=== PATIENT | male | born 1960 | race American Indian/Alaskan Native ===

== ENCOUNTER 2016-05-19 09:17 | Outpatient (CLI) | payer BC ==
--- NOTE | 2016-05-19 12:13 | Ultrasound Report ---
ULTRASOUND RENAL BILATERAL: HISTORY: Bilateral renal cysts. FINDINGS: The right kidney measures 9.1 x 5.4 x 3.6 cm. A simple right renal cyst near mid pole measures 1.5 cm. The left kidney measures 9.6 x 6.2 x 6.1 cm. There is a 6.6 x 6.0 cm cyst near the inferior pole of the left kidney with a solitary thin septation. This cyst appears slightly increased in size since the previous exam when it measured approximately 5 cm in diameter. The remainder of the kidneys are unremarkable. No evidence for mass, calculus, hydronephrosis or perinephric fluid. Images through the bladder are unremarkable. IMPRESSION: Bilateral renal cysts, as described.
== END 2016-05-19 09:18 | disposition home or self-care (01) ==
LOC: US 09:17
PROVIDERS: ATTEND Family Medicine
DX: N28.1 Cyst of kidney, acquired (principal)
CPT/HCPCS: 76770

== ENCOUNTER 2016-11-26 08:05 | Outpatient (CLI) | payer BC ==
[2016-11-26 09:28] LABS: Blood Urea Nitrogen 15 mg/dL (9-20)
--- NOTE | 2016-11-26 10:59 | Cat Scan Report ---
CT scan of head without contrast: History: Weakness left sided upper and lower extremity. Findings: Ventricles are normal in size and midline in location. No evidence of acute ischemia, hemorrhage or mass. No extra-axial fluid collection. Normal brainstem and cerebellum. Impression: No acute intracranial abnormality.
== END 2016-11-26 08:06 | disposition home or self-care (01) ==
LOC: CT 08:05
PROVIDERS: ATTEND Family Medicine
DX: R53.1 Weakness (principal)
CPT/HCPCS: 36415; 70470; 82565; 84520; Q9967

== ENCOUNTER 2019-11-28 07:52 | Outpatient (CLI) | payer BC ==
--- NOTE | 2019-11-28 09:16 | Magnetic Resonance Report ---
MR cervical spine wo con INDICATION / CLINICAL INFORMATION: 59 years Male; N54.12Radiculopathy, cervical region. TECHNIQUE: Multisequence, multiplanar images of the cervical spine were obtained. COMPARISON: None available. FINDINGS: CRANIOCERVICAL JUNCTION:No significant abnormality. ALIGNMENT: There is no significant spondylolisthesis involving the cervical spine. VERTEBRAE:There are advanced degenerative disc changes at C6-7 with endplate findings and mild edema. There is slight edema posteriorly at C5-6 and on the left at C3-4. There is also edema within the le ft articular facets at C3-4. VISUALIZED SPINAL CORD: The motion degrades the image quality. However, the cervical spinal cord appe ars to demonstrate appropriate signal intensity. [id number] ANALYSIS: C2-3: No significant abnormality. C3-4: The posterior spondylosis at C3-4 is greater on the left with mild deformity of the ventral cor d. Additionally, there is effacement of the left lateral recess with marked left neural foraminal ester rowing. C4-5: There is a broad-based central disc bulge and annular tear which slightly deforms the ventral c ord. There is mild neural foraminal narrowing bilaterally. C5-6: The posterior spondylosis mildly deforms the ventral cord with effacement of the lateral recess es. Additionally, there is marked left and moderate to marked right neural foraminal narrowing. C6-7: There is a central disc protrusion which mildly deforms the ventral cord. Additionally, there i s moderate to marked neural foraminal narrowing bilaterally. C7-T1: There is a slight disc bulge without significant spinal stenosis. There is mild facet joint hy pertrophy and neural foraminal narrowing bilaterally. PARASPINAL SOFT TISSUES: No significant abnormality. ADDITIONAL FINDINGS: No epidural collections are identified. IMPRESSION: 1. There are multilevel degenerative changes involving cervical spine with spondylosis and facet join t arthropathy as detailed above. Signer Name: Juni Olson MD Signed: 11/28/2019 9:12 AM Workstation Name: [id number]
== END 2019-11-28 07:53 | disposition home or self-care (01) ==
LOC: MRI 07:52
PROVIDERS: ATTEND Family Medicine
DX: M50.221 Other cervical disc displacement at C4-C5 level (principal); M47.812 Spondylosis without myelopathy or radiculopathy, cervical region; M48.02 Spinal stenosis, cervical region
CPT/HCPCS: 72141

== ENCOUNTER 2020-05-28 07:52 | Outpatient (CLI) | payer BC ==
[2020-05-14 08:14] LABS: Blood Urea Nitrogen 17 mg/dL (9-20)
== END 2020-05-28 07:53 | disposition home or self-care (01) ==
LOC: CT 07:52
PROVIDERS: ATTEND Psychiatry & Neurology Neurology
DX: M50.323 Other cervical disc degeneration at C6-C7 level (principal)
CPT/HCPCS: 36415; 82565; 84520

== ENCOUNTER 2020-06-04 08:03 | Outpatient (CLI) | payer BC ==
[2020-06-04] MEDS ORDERED: LIDOCAINE (2%) 20 MG/1 ML VIAL 20 ML MDV INFILTRATI ONE (08:41)
[2020-06-04 10:24] LABS: INR 0.98 (0.87-1.13); Partial Thromboplastin Time 30.3 Sec. (24.2-36.6)
--- NOTE | 2020-06-04 12:23 | Procedure Note ---
Date of procedure: 06/04/20 Pre-op diagnosis: Neck pain Post-op diagnosis: same Procedure: Fluoroscopically guided cervical myelogram. Findings: Please see radiology report. Anesthesia: local Surgeon: MARCELLE PATRICK Estimated blood loss: minimal Pathology: none Condition: stable Disposition: same day
--- NOTE | 2020-06-04 12:51 | Fluoroscopy Report ---
Cervical myelogram INDICATION : Neck pain, here for mammogram PROCEDURE: The risks (including but not limited to bleeding, infection, and spinal headache) and simeon efits were explained to the patient and informed consent was obtained. A time out procedure was perf ormed. The procedure site was prepped and draped in the usual sterile fashion and lidocaine was used for local anesthesia. Under fluoroscopic guidance, a 22-gauge spinal needle was advanced into the L3/4 interlaminar space. After CSF was returned from the needle, approximately 10 mL of Omnipaque 300 was slowly injected into the thecal sac. The patient was then tilted with head down to allow for contrast passage into the ce rvical spine region. The patient tolerated the procedure well with no complications. IMPRESSION: 1. Successful cervical myelogram as outlined above. Fluoroscopic time: 5.4 minutes Number of fluoroscopic images: 5 Signer Name: Matt Alarcon MD Signed: 06/04/2020 12:47 PM Workstation Name: [id number]
[2020-06-04 12:58] VITALS: BP 152/93
--- NOTE | 2020-06-04 13:19 | Cat Scan Report ---
CT cervical spine myelogram with intrathecal contrast INDICATION: Generalized bilateral upper exam knee pain for several weeks. TECHNIQUE: Axial imaging performed through the cervical spine with the use of intrathecal contrast. Sagittal and coronal reconstructed images were also reviewed. All CT scans at this location are per formed using CT dose reduction for ALARA by means of automated exposure control. COMPARISON: MRI cervical spine from 11/28/2019 FINDINGS: Alignment: Spinal alignment is normal. Soft tissues: No acute or significant incidental soft tissue abnormality. C2/3: Mild discogenic DJD and facet arthropathy with no appreciable disc bulge, canal stenosis, or fo raminal stenosis. C3/4: Mild discogenic DJD with moderate left greater than right facet arthropathy and asymmetric left -sided uncovertebral hypertrophy. There is mild flattening of the spinal cord left of midline in this region and there is also moderate to severe left-sided foraminal stenosis. C4/5: Mild discogenic DJD and facet arthropathy with no appreciable canal or foraminal stenosis. C5/6: Moderate discogenic DJD and facet arthropathy with bilateral uncovertebral hypertrophy. And sma ll posterior disc/osteophyte complex. There is moderate spinal canal stenosis in this region and ther e is also moderate bilateral foraminal stenosis. C6/7: Moderately advanced discogenic DJD with regular left facet arthropathy and bilateral uncoverteb ral hypertrophy. There is a small posterior disc/osteophyte complex. These findings result in moderat e to severe spinal canal stenosis and also mild bilateral foraminal stenosis. C7/T1: Mild discogenic DJD and facet arthropathy without disc bulge, canal stenosis, foraminal stenos is. IMPRESSION: Multilevel spondylosis as detailed level by level above most notable for moderate spinal canal stenosis at C5-7 and also levels of foraminal stenosis. Signer Name: Matt Alarcon MD Signed: 06/04/2020 1:15 PM Workstation Name: [id number]
== END 2020-06-04 13:30 | disposition home or self-care (01) ==
LOC: CATHLABREC 08:03
DX: M54.2 Cervicalgia (principal); M48.02 Spinal stenosis, cervical region; M12.88 Other specific arthropathies, not elsewhere classified, other specified site; M47.892 Other spondylosis, cervical region; I25.10 Atherosclerotic heart disease of native coronary artery without angina pectoris; I10 Essential (primary) hypertension; Z98.890 Other specified postprocedural states; Z79.899 Other long term (current) drug therapy; Z87.891 Personal history of nicotine dependence
CPT/HCPCS: 36415; 62302; 72125; 85049; 85610; 85730; Q9967

== ENCOUNTER 2020-07-14 08:06 | Outpatient (CLI) | payer BC ==
--- NOTE | 2020-07-14 10:26 | Ultrasound Report ---
RENAL ULTRASOUND HISTORY: HISTORY OF RENAL CYST COMPARISON: Renal ultrasound 05/19/2016 TECHNIQUE: Multiple real-time ultrasonographic grayscale images were obtained of the kidneys and urin diogenes bladder. FINDINGS: Right kidney: 1.9 cm simple cyst in the right kidney. Otherwise no significant abnormality. Kidney m easures 10.1 cm. Left kidney: Redemonstration of a cyst with thin internal septation in the left kidney, currently jahaira suring up to 7.6 x 6.3 x 5.6 cm, previously 6.6 x 6.0 x 5.7 cm. No nodularity or solid component iden tified. Kidney measures 16.3 cm. Urinary bladder: No significant abnormality. Additional findings: None. IMPRESSION: 1. A 7.6 cm cyst with thin internal septation in the left kidney is slightly increased in size compar ed with prior examination but demonstrates benign features. No suspicious nodularity or solid compone nt identified. Signer Name: Sarah Wasserman MD Signed: 07/14/2020 10:22 AM Workstation Name: [id number]
== END 2020-07-14 08:07 | disposition home or self-care (01) ==
LOC: US 08:06
PROVIDERS: ATTEND Family Medicine
DX: N28.1 Cyst of kidney, acquired (principal); Z87.448 Personal history of other diseases of urinary system
CPT/HCPCS: 76770

== ENCOUNTER 2021-01-30 13:25 | Observation (INO) | payer BC ==
[2021-01-30] MEDS ORDERED: ASPIRIN 325 MG TAB PO ONE (13:52)
[2021-01-30 14:20] LABS: Basophils % (Auto) 0.8 % (0.0-1.8); Eosinophils # (Auto) 0.1 K/mm3 (0.0-0.4); Eosinophils % (Auto) 3.6 % (0.0-4.3); Hematocrit 40.1 % (35.5-45.6); Hemoglobin 13.6 gm/dl (11.8-15.2); Lymphocytes # (Auto) 1.6 K/mm3 (1.2-5.4); Lymphocytes % (Auto) 39.6 % (13.4-35.0); Mean Corpuscular HGB Conc 34 % (32-34); Mean Corpuscular Volume 91 fl (84-94); Monocytes # (Auto) 0.4 K/mm3 (0.0-0.8); Monocytes % (Auto) 9.9 % (0.0-7.3); Platelet Count 190 K/mm3 (140-440); Red Cell Distribution Width 13.9 % (13.2-15.2)
--- NOTE | 2021-01-30 14:28 | XRay Report ---
XR chest routine 2V INDICATION / CLINICAL INFORMATION: chest pain COMPARISON: 07/05/18 FINDINGS: SUPPORT DEVICES: None. HEART / MEDIASTINUM: No significant abnormality. LUNGS / PLEURA: Lungs are clear. Costophrenic sulci are sharp. No pneumothorax. ADDITIONAL FINDINGS: No significant additional findings. IMPRESSION: 1. No acute findings. Signer Name: Dajuan Arroyo MD Signed: 01/30/2021 2:24 PM Workstation Name: [id number]
--- NOTE | 2021-01-30 14:32 | Event Note ---
ED Screening Note Date of service: 01/30/21 Time: 14:29 ED Screening Note: The patient was evaluated in the emergency department for symptoms described in the history of present illness. He/she was evaluated in the context of the global COVID-19 pandemic, which necessitated consideration that the patient might be at risk for infection with the virus that causes COVID-19. Institutional protocols and algorithms that pertain to the evaluation of patients at risk for COVID-19 are in a state of rapid change based on information released by regulatory bodies including the CDC and federal and state organizations. These policies and algorithms were followed during the patient's care in the emergency department. Please note that these policies, procedures and recommendations changed on a rapid basis. 60-year-old male presents to the emergency room complaining of chest pain that started last night. Patient states onset was when he was at the bathroom. Patient reports he was not having a bowel movement at that time. Patient states the pain had radiated to his left arm. He reports he was having some lightheadedness at the time. Patient denies any nausea, vomiting no diarrhea no shortness of breath and no diaphoresis. Patient states the pain was worse last night. Patient reports pain is intermittent and is a 2-3/10. Patient reports he has more pain in his shoulder and just has light chest pain. Patient reports a past medical history of hypertension and cervical radiculopathy on the left side. Patient states he takes Benicar 100 mg and hydrochlorothiazide 12.5 mg he takes an aspirin and amlodipine 10. Patient states he was prescribed Robaxin but does not take it often. He states he had a stress test 8 to 10 years ago at [facility]. Patient has a primary care provider Dr. Velazco. This initial assessment/diagnostic orders/clinical plan/treatment(s) is/are subject to change based on patients health status, clinical progression and re- assessment by fellow clinical providers in the ED. Further treatment and workup at subsequent clinical providers discretion. Patient/guardian urged not to elope from the ED as their condition may be serious if not clinically assessed and managed. Initial orders include: Cardiac work-up placed by RN in triage
[2021-01-30 14:37] LABS: Alanine Aminotransferase 18 units/L (7-56); Albumin 4.3 g/dL (3.9-5); BUN/Creatinine Ratio 15; Blood Urea Nitrogen 17 mg/dL (9-20); Calcium 8.8 mg/dL (8.4-10.2); Hemolysis Index 1
--- NOTE | 2021-01-30 14:41 | Emergency Department Report ---
ED Chest Pain HPI - General Chief Complaint: Chest Pain Stated Complaint: CHEST PAINS Time Seen by Provider: 01/30/21 14:12 Source: patient Mode of arrival: Ambulatory Limitations: No Limitations - History of Present Illness Initial Comments: 60-year-old male presents to the emergency department, sent in from an urgent care, with complaint of chest pain that has been going on since last night. 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 He complains of generalized chest pressure that is currently about 3 out of 10 in intensity. Overnight patient had 4-5 different episodes of "crushing" chest pains with radiation to the bilateral shoulders and arms. He denies any shortness of breath, nausea, vomiting or diaphoresis. Patient took some aspirin last night without any relief. He has a past medical history of hypertension. He denies any tobacco or illicit drug use. His primary care physician is Dr. Hernandez. He does not have a frame stripper and crusher. He last had a stress test about 8 to 10 years ago. No recent travel or sick contacts at home. No known alleviating factors, but the patient says that exertion makes his symptoms worse. Severity scale (0 -10): 3 - Related Data Home Medications Medication Instructions Recorded Confirmed Last Taken Olmesartan/Hctz 40/12.5MG(Nf) 1 tab PO DAILY 06/04/20 06/04/20 06/03/20 [Benicar Hct 40-12.5 mg (Nf)] 1 methOCARBAMOL [Robaxin TAB] 500 mg PO DAILY PRN 06/04/20 06/04/20 Unknown Previous Rx's Medication Instructions Recorded Last Taken Type Cyclobenzaprine HCl 7.5 mg PO BID PRN #14 tab 04/15/16 05/27/20 Rx [Cyclobenzaprine 7.5 MG TAB] 7.5mg Allergies Allergy/AdvReac Type Severity Reaction Status Date / Time No Known Allergies Allergy Verified 01/30/21 13:51 Heart Score - HEART Score History: Moderately suspicious EKG: Normal Age: 45-65 Risk factors: 1-2 risk factors Troponin: < normal limit HEART Score: 3 - EKG Read Time Time EKG Completed: 13:46 EKG Read Time: 13:59 - Critical Actions Critical Actions: 0-3 pts:0.9-1.7%risk of adverse cardiac event.Candidate for discharge ED Review of Systems ROS: Stated complaint: CHEST PAINS Other details as noted in HPI Comment: All other systems reviewed and negative Constitutional: denies: chills, fever Eyes: denies: eye pain, vision change ENT: denies: ear pain, throat pain Respiratory: shortness of breath. denies: cough Cardiovascular: chest pain. denies: palpitations Gastrointestinal: denies: abdominal pain, vomiting Genitourinary: denies: dysuria, discharge Musculoskeletal: denies: back pain, arthralgia Skin: denies: rash, lesions Neurological: denies: headache, weakness ED Past Medical Hx - Past Medical History Hx Hypertension: Yes Hx Arthritis: Yes - Social History Smoking Status: Former Smoker - Medications Home Medications: Home Medications Medication Instructions Recorded Confirmed Last Taken Type Cyclobenzaprine HCl 7.5 mg PO BID PRN #14 tab 04/15/16 06/04/20 05/27/20 Rx [Cyclobenzaprine 7.5 MG TAB] 7.5mg Olmesartan/Hctz 40/12.5MG(Nf) 1 tab PO DAILY 06/04/20 06/04/20 06/03/20 History [Benicar Hct 40-12.5 mg (Nf)] 1 methOCARBAMOL [Robaxin TAB] 500 mg PO DAILY PRN 06/04/20 06/04/20 Unknown History ED Physical Exam - General Limitations: No Limitations - Other Other exam information: GENERAL: The patient is well-developed well-nourished. HENT: Normocephalic. Atraumatic. Patient has moist mucous membranes. EYES: Extraocular motions are intact. NECK: Supple. Trachea is midline. CHEST/LUNGS: Clear to auscultation. There is no respiratory distress noted. HEART/CARDIOVASCULAR: Regular. There is no tachycardia. There is no murmur. ABDOMEN: Abdomen is soft, nontender. Patient has normal bowel sounds. There is no abdominal distention. SKIN: Skin is warm and dry. NEURO: The patient is awake, alert, and oriented. The patient is cooperative. The patient has no focal neurologic deficits. Normal speech. MUSCULOSKELETAL: There is no tenderness or deformity. There is no limitation range of motion. ED Course Vital Signs 01/30/21 01/30/21 13:43 15:25 Temperature 97.8 F 98.2 F Pulse Rate 58 L 55 L Respiratory 16 14 Rate Blood Pressure 127/77 149/86 [Left] O2 Sat by Pulse 98 100 Oximetry RODRIGUEZ score - Rodriguez Score Age > 65: (0) No Aspirin use within the Past 7 Days: (1) Yes 3 or more CAD Risk Factors: (0) No 2 or more Angina events in past 24 hrs: (1) Yes Known CAD with more than 50% Stenosis: (0) No Elevated Cardiac Markers: (0) No ST Deviation Greater than 0.5mm: (0) No RODRIGUEZ Score: 2 ED Medical Decision Making - Lab Data Result diagrams: 01/30/21 13:55 01/30/21 13:55 Lab Results 01/30/21 01/30/21 Range/Units 13:55 13:55 WBC 4.1 L (4.5-11.0) K/mm3 RBC 4.40 (3.65-5.03) M/mm3 Hgb 13.6 (11.8-15.2) gm/dl Hct 40.1 (35.5-45.6) % MCV 91 (84-94) fl MCH 31 (28-32) pg MCHC 34 (32-34) % RDW 13.9 (13.2-15.2) % Plt Count 190 (140-440) K/mm3 Lymph % (Auto) 39.6 H (13.4-35.0) % Twiggs % (Auto) 9.9 H (0.0-7.3) % Eos % (Auto) 3.6 (0.0-4.3) % Baso % (Auto) 0.8 (0.0-1.8) % Lymph # (Auto) 1.6 (1.2-5.4) K/mm3 Twiggs # (Auto) 0.4 (0.0-0.8) K/mm3 Eos # (Auto) 0.1 (0.0-0.4) K/mm3 Baso # (Auto) 0.0 (0.0-0.1) K/mm3 Seg Neutrophils % 46.1 (40.0-70.0) % Seg Neutrophils # 1.9 (1.8-7.7) K/mm3 Sodium 141 (137-145) mmol/L Potassium 3.8 (3.6-5.0) mmol/L Chloride 104.2 (98-107) mmol/L Carbon Dioxide 23 (22-30) mmol/L Anion Gap 18 mmol/L BUN 17 (9-20) mg/dL Creatinine 1.1 (0.8-1.3) mg/dL Estimated GFR > 60 ml/min BUN/Creatinine Ratio 15 % Glucose 105 H (75-100) mg/dL Calcium 8.8 (8.4-10.2) mg/dL Total Bilirubin 0.70 (0.1-1.2) mg/dL AST 18 (5-40) units/L ALT 18 (7-56) units/L Alkaline Phosphatase 66 (35-129) units/L Troponin T < 0.010 (0.00-0.029) ng/mL Total Protein 7.5 (6.3-8.2) g/dL Albumin 4.3 (3.9-5) g/dL Albumin/Globulin Ratio 1.3 % - EKG Data -: EKG Interpreted by Me EKG shows normal: sinus rhythm, axis, intervals, QRS complexes, ST-T waves Rate: bradycardia (58 bpm) - EKG Data When compared to previous EKG there are: previous EKG unavailable Interpretation: normal EKG - Radiology Data Radiology results: image reviewed interpreted by me: Chest x-ray does not show any acute process. There are no pleural effusions, obvious pneumonia and there is no pneumothorax. - Medical Decision Making This patient presents to the emergency department with 2 different types of chest pain since last night. He has a consistent generalized chest pressure, and last night the patient had 4-5 episodes of "crushing" chest pain with radiation towards the shoulders and arms. The patient says that his symptoms worsen with exertion. EKG does not have any morphology consistent with ST elevation myocardial infarction. Chest x-ray does not show any pneumonia, pleural effusions, pneumothorax, widened mediastinum, or any other acute process. Patient's labs have been mostly unremarkable thus far including CBC, metabolic panel and a first negative troponin. Patient has a moderate heart score. It has been at least 8 years since the patient has had a stress test. He continues to have chest discomfort. For all these reasons the patient will be admitted to the hospital for further evaluation and has been accepted for admission by the hospitalist, Dr. Green. Critical Care Time: No Critical care attestation.: If time is entered above; I have spent that time in minutes in the direct care of this critically ill patient, excluding procedure time. ED Disposition Clinical Impression: Acute chest pain, Angina at rest Disposition: ADMITTED INPATIENT Is pt being admited?: Yes Condition: Fair Instructions: Chest Pain (ED) Time of Disposition: 14:54
[2021-01-30] MEDS ORDERED: HYDROcodone/ACETAMINOPHEN 5-325 MG TAB PO ONE (15:24)
[2021-01-30] MEDS ORDERED: CYCLOBENZAPRINE HCL 7.5 MG PO PRN (22:45)
--- NOTE | 2021-01-30 22:45 | History and Physical Report ---
History of Present Illness Date of examination: 01/30/21 Date of admission: 01/30/21 14:54 Chief complaint: Chest pain since a.m. 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 Patient was went to urgent care and was sent to the [facility]. Patient does not have a human resources receptionist. Patient had a stress test about 10 years ago. Patient has a history of hypertension and is compliant. Chest pain has been going on since last night and intermittent in nature. Chest pain is about 8 on a scale of 1- 10. No diaphoresis no shortness of breath. - HEART Score History: Moderately suspicious EKG: Normal Age: 45-65 Risk factors: 1-2 risk factors Troponin: < normal limit HEART Score: 3 - Past Medical History --Hypertension: Yes --Arthritis: Yes -Surgical history --none - family history --Htn - Social History Smoking Status: Former Smoker - Medications Home Medications: Home Medications Medication Instructions Recorded Confirmed Last Taken Type Cyclobenzaprine HCl 7.5 mg PO BID PRN #14 tab 04/15/16 06/04/20 05/27/20 Rx [Cyclobenzaprine 7.5 MG TAB] 7.5mg Olmesartan/Hctz 40/12.5MG(Nf) 1 tab PO DAILY 06/04/20 06/04/20 06/03/20 History [Benicar Hct 40-12.5 mg (Nf)] 1 methOCARBAMOL [Robaxin TAB] 500 mg PO DAILY PRN 06/04/20 06/04/20 Unknown History Review of Systems ROS: Stated complaint: CHEST PAINS Other details as noted in HPI Comment: All other systems reviewed and negative Constitutional: denies: chills, fever Eyes: denies: eye pain, vision change ENT: denies: ear pain, throat pain Respiratory: shortness of breath. denies: cough Cardiovascular: chest pain. denies: palpitations Gastrointestinal: denies: abdominal pain, vomiting Genitourinary: denies: dysuria, discharge Musculoskeletal: denies: back pain, arthralgia Skin: denies: rash, lesions Neurological: denies: headache, weakness Medications and Allergies Allergies Allergy/AdvReac Type Severity Reaction Status Date / Time No Known Allergies Allergy Verified 01/30/21 13:51 Home Medications Medication Instructions Recorded Confirmed Last Taken Type Cyclobenzaprine HCl 7.5 mg PO BID PRN #14 tab 04/15/16 06/04/20 05/27/20 Rx [Cyclobenzaprine 7.5 MG TAB] 7.5mg Olmesartan/Hctz 40/12.5MG(Nf) 1 tab PO DAILY 06/04/20 06/04/20 06/03/20 History [Benicar Hct 40-12.5 mg (Nf)] 1 methOCARBAMOL [Robaxin TAB] 500 mg PO DAILY PRN 06/04/20 06/04/20 Unknown History Exam - Constitutional Vitals: Temp Pulse Resp BP Pulse Ox 98.2 F 56 L 12 131/84 99 01/30/21 15:25 01/30/21 22:29 01/30/21 22:29 01/30/21 22:29 01/30/21 22:29 HEART Score - HEART Score EKG: Normal Age: 45-65 Risk factors: 1-2 risk factors Troponin: Troponin T < 0.010 ng/mL (0.00-0.029) 01/30/21 18:43 Troponin: < normal limit - Critical Actions Critical Actions: 0-3 pts:0.9-1.7%risk of adverse cardiac event.Candidate for discharge Results - Labs CBC & Chem 7: 01/31/21 04:36 01/31/21 04:36 Labs: Laboratory Last Values WBC 4.1 K/mm3 (4.5-11.0) L 01/30/21 13:55 RBC 4.40 M/mm3 (3.65-5.03) 01/30/21 13:55 Hgb 13.6 gm/dl (11.8-15.2) 01/30/21 13:55 Hct 40.1 % (35.5-45.6) 01/30/21 13:55 MCV 91 fl (84-94) 01/30/21 13:55 MCH 31 pg (28-32) 01/30/21 13:55 MCHC 34 % (32-34) 01/30/21 13:55 RDW 13.9 % (13.2-15.2) 01/30/21 13:55 Plt Count 190 K/mm3 (140-440) 01/30/21 13:55 Lymph % (Auto) 39.6 % (13.4-35.0) H 01/30/21 13:55 [place] % (Auto) 9.9 % (0.0-7.3) H 01/30/21 13:55 Eos % (Auto) 3.6 % (0.0-4.3) 01/30/21 13:55 Baso % (Auto) 0.8 % (0.0-1.8) 01/30/21 13:55 Lymph # (Auto) 1.6 K/mm3 (1.2-5.4) 01/30/21 13:55 [place] # (Auto) 0.4 K/mm3 (0.0-0.8) 01/30/21 13:55 Eos # (Auto) 0.1 K/mm3 (0.0-0.4) 01/30/21 13:55 Baso # (Auto) 0.0 K/mm3 (0.0-0.1) 01/30/21 13:55 Seg Neutrophils % 46.1 % (40.0-70.0) 01/30/21 13:55 Seg Neutrophils # 1.9 K/mm3 (1.8-7.7) 01/30/21 13:55 Sodium 141 mmol/L (137-145) 01/30/21 13:55 Potassium 3.8 mmol/L (3.6-5.0) 01/30/21 13:55 Chloride 104.2 mmol/L (98-107) 01/30/21 13:55 Carbon Dioxide 23 mmol/L (22-30) 01/30/21 13:55 Anion Gap 18 mmol/L 01/30/21 13:55 BUN 17 mg/dL (9-20) 01/30/21 13:55 Creatinine 1.1 mg/dL (0.8-1.3) 01/30/21 13:55 Estimated GFR > 60 ml/min 01/30/21 13:55 BUN/Creatinine Ratio 15 % 01/30/21 13:55 Glucose 105 mg/dL (75-100) H 01/30/21 13:55 Calcium 8.8 mg/dL (8.4-10.2) 01/30/21 13:55 Total Bilirubin 0.70 mg/dL (0.1-1.2) 01/30/21 13:55 AST 18 units/L (5-40) 01/30/21 13:55 ALT 18 units/L (7-56) 01/30/21 13:55 Alkaline Phosphatase 66 units/L (35-129) 01/30/21 13:55 Troponin T < 0.010 ng/mL (0.00-0.029) 01/30/21 18:43 Total Protein 7.5 g/dL (6.3-8.2) 01/30/21 13:55 Albumin 4.3 g/dL (3.9-5) 01/30/21 13:55 Albumin/Globulin Ratio 1.3 % 01/30/21 13:55 Short CBC 01/30/21 01/31/21 Range/Units 13:55 04:36 WBC 4.1 L 4.3 L (4.5-11.0) K/mm3 Hgb 13.6 13.1 (11.8-15.2) gm/dl Hct 40.1 38.7 (35.5-45.6) % Plt Count 190 178 (140-440) K/mm3 BMP 01/30/21 01/31/21 13:55 04:36 Sodium 141 138 Potassium 3.8 3.9 Chloride 104.2 103.1 Carbon Dioxide 23 26 BUN 17 17 Creatinine 1.1 1.1 Glucose 105 H 96 Calcium 8.8 8.6 Cardiac Enzymes 01/30/21 01/30/21 01/31/21 Range/Units 13:55 18:43 00:08 Total Creatine Kinase 179 H (55-170) units/L CK-MB (CK-2) 1.9 (0.0-4.0) ng/mL Troponin T < 0.010 < 0.010 < 0.010 (0.00-0.029) ng/mL 01/31/21 Range/Units 04:36 Total Creatine Kinase 152 (55-170) units/L CK-MB (CK-2) 1.7 (0.0-4.0) ng/mL Troponin T < 0.010 (0.00-0.029) ng/mL Liver Function 01/30/21 01/31/21 Range/Units 13:55 04:36 Total Bilirubin 0.70 0.50 (0.1-1.2) mg/dL AST 18 17 (5-40) units/L ALT 18 18 (7-56) units/L Alkaline Phosphatase 66 65 (35-129) units/L Albumin 4.3 4.0 (3.9-5) g/dL - Imaging and Cardiology EKG: report reviewed (Normal sinus rhythm no acute ST-T wave changes) Chest x-ray: report reviewed (No acute findings) Assessment and Plan Advance Directives: Yes (Full code) VTE prophylaxis?: Chemical Plan of care discussed with patient/family: Yes - Patient Problems (1) Acute coronary syndrome Current Visit: Yes Status: Acute Plan to address problem: Patient has acute coronary syndrome Serial troponins Stress test is not available on the weekend If the serial troponins and CK-MB is negative--we will defer to cardiology regarding outpatient stress test and patient to be discharged on 01/31/2021 (2) Hypertension Current Visit: Yes Status: Chronic Qualifiers: Hypertension type: primary hypertension Qualified Code(s): I10 - Essential (primary) hypertension Plan to address problem: Continue antihypertensives in the form of Benicar substitute for Benicar Adjust medications as necessary (3) DVT prophylaxis Current Visit: Yes Status: Acute Plan to address problem: On heparin and GI prophylaxis
[2021-01-30] MEDS ORDERED: METOCLOPRAMIDE 10 MG/2 ML INJ IV PRN (22:48)
[2021-01-30] MEDS ORDERED: ACETAMINOPHEN 325 MG TAB PO PRN (22:48)
[2021-01-30] MEDS ORDERED: HYDROmorphone 1 MG/1 ML INJ IV PRN (22:48)
[2021-01-30] MEDS ORDERED: ONDANSETRON 4 MG/2 ML INJ IV PRN (22:48)
[2021-01-30] MEDS ORDERED: oxyCODONE /ACETAMINOPHEN 5-325MG TAB PO PRN (22:48)
[2021-01-30] MEDS ORDERED: CYCLOBENZAPRINE 10 MG TAB PO PRN (22:49)
[2021-01-31 01:09] LABS: Creatine Kinase MB 1.9 ng/mL (0.0-4.0)
[2021-01-31 05:02] LABS: Basophils % (Auto) 1.1 % (0.0-1.8); Eosinophils # (Auto) 0.1 K/mm3 (0.0-0.4); Eosinophils % (Auto) 3.4 % (0.0-4.3); Hematocrit 38.7 % (35.5-45.6); Hemoglobin 13.1 gm/dl (11.8-15.2); Lymphocytes % (Auto) 46.7 % (13.4-35.0); Mean Corpuscular HGB Conc 34 % (32-34); Mean Corpuscular Volume 91 fl (84-94); Monocytes # (Auto) 0.5 K/mm3 (0.0-0.8); Monocytes % (Auto) 10.7 % (0.0-7.3); Platelet Count 178 K/mm3 (140-440); Red Blood Count 4.25 M/mm3 (3.65-5.03); Red Cell Distribution Width 14.1 % (13.2-15.2)
[2021-01-31 05:42] LABS: Creatine Kinase MB 1.7 ng/mL (0.0-4.0)
[2021-01-31 05:44] LABS: Alanine Aminotransferase 18 units/L (7-56); BUN/Creatinine Ratio 15; Blood Urea Nitrogen 17 mg/dL (9-20); Calcium 8.6 mg/dL (8.4-10.2); Hemolysis Index 6
--- NOTE | 2021-01-31 07:20 | Event Note ---
Date: 01/31/21 Called by the nurse this morning at 7 AM that the patient has some EKG changes. EKG looks like ST changes. Patient denied any chest pain no shortness of breath. Nurse check the EKG with ER physician recommend to repeat the EKG. Case signed out to the morning doctor
--- NOTE | 2021-01-31 08:16 | Event Note ---
Date: 01/31/[address] Akbar and patient's nurse called and reported that patient has some ST-T changes on the EKG that was done this morning. 60-year-old male patient admitted with chest pain, yesterday afternoon, serial cardiac enzymes, troponin x4 negative, Initial EKG nonspecific ST-T changes signed by assistant women's basketball coach Dr Marks EKG done this morning has the same nonspecific ST-T changes like the previous EKG, no new changes Evaluated the patient at the bedside, patient is comfortable, no new complaints Denies chest pain or shortness of breath Hemodynamically stable, heart exam S1-S2 regular no murmur. Cardiology is already consulted. Pending evaluation Continue current management, discussed with patient's nurse and charge nurse I also discussed with attending physician Dr. Young.
[2021-01-31] MEDS ORDERED: OLMESARTAN PO SCH (10:00)
[2021-01-31] MEDS ORDERED: HCTZ PO SCH (10:00)
[2021-01-31] MEDS ORDERED: ENOXAPARIN 40 MG/0.4 ML INJ SUB-Q SCH (10:00)
[2021-01-31] MEDS ORDERED: LOSARTAN 50 MG TAB PO SCH (10:00)
[2021-01-31] MEDS ORDERED: FAMOTIDINE 20 MG TAB PO SCH (10:00)
[2021-01-31] MEDS ORDERED: hydroCHLOROthiazide 12.5 MG CAP PO SCH (10:00)
--- NOTE | 2021-01-31 11:11 | Progress Note ---
Assessment and Plan Assessment and plan: (1) Acute coronary syndrome Current Visit: Yes Status: Acute Plan to address problem: Patient has acute coronary syndrome Serial troponins Stress test is not available on the weekend If the serial troponins and CK-MB is negative--we will defer to cardiology regarding outpatient stress test and patient to be discharged on 01/31/2021 (2) Hypertension Current Visit: Yes Status: Chronic Qualifiers: Hypertension type: primary hypertension Qualified Code(s): I10 - Essential (primary) hypertension Plan to address problem: Continue antihypertensives in the form of Benicar substitute for Benicar Adjust medications as necessary (3) DVT prophylaxis Current Visit: Yes Status: Acute Plan to address problem: On heparin and GI prophylaxis 01/31 -Patient has abnormal EKG, ST abnormality and EKG was interpreted yesterday by patient service rep, the EKG that was done this morning showed no change from yesterday. Patient does have any chest pain. Hemodynamically stable. Cardiology consulted and pending evaluation. -Blood pressure was normal this morning -Serial troponins were negative, stress test ordered. History Interval history: Patient was seen and evaluated this morning Patient does not have any chest pain during my evaluation Patient had chest pain yesterday He said he has some occasional chest pressure No shortness of breath, or diaphoresis Hospitalist Physical - Physical exam Narrative exam: Not in cardiopulmonary distress. The patient appeared well nourished and normally developed. Vital signs as documented. Head exam is unremarkable. No scleral icterus . Neck is without jugular venous distension, thyromegaly, or carotid bruits. Lungs are clear to auscultation. Cardiac exam reveals regular rate and Rhythm. Abdominal exam reveals normal bowel sounds, nontender, no organomegaly. Extremities are nonedematous and both femoral and pedal pulses are normal. TURNER OFF: Alert and oriented 3. No focal weakness. - Constitutional Vitals: Temp Pulse Resp BP Pulse Ox 98.0 F 55 L 20 130/79 100 01/31/21 05:51 01/31/21 08:16 01/31/21 07:43 01/31/21 07:43 01/31/21 08:16 HEART Score - HEART Score EKG: Normal Age: 45-65 Risk factors: 1-2 risk factors Troponin: Troponin T < 0.010 ng/mL (0.00-0.029) 01/31/21 04:36 Troponin: < normal limit - Critical Actions Critical Actions: 0-3 pts:0.9-1.7%risk of adverse cardiac event.Candidate for discharge Results - Labs CBC & Chem 7: 01/31/21 04:36 01/31/21 04:36 Labs: Laboratory Last Values WBC 4.3 K/mm3 (4.5-11.0) L 01/31/21 04:36 RBC 4.25 M/mm3 (3.65-5.03) 01/31/21 04:36 Hgb 13.1 gm/dl (11.8-15.2) 01/31/21 04:36 Hct 38.7 % (35.5-45.6) 01/31/21 04:36 MCV 91 fl (84-94) 01/31/21 04:36 MCH 31 pg (28-32) 01/31/21 04:36 MCHC 34 % (32-34) 01/31/21 04:36 RDW 14.1 % (13.2-15.2) 01/31/21 04:36 Plt Count 178 K/mm3 (140-440) 01/31/21 04:36 Lymph % (Auto) 46.7 % (13.4-35.0) H 01/31/21 04:36 [place] % (Auto) 10.7 % (0.0-7.3) H 01/31/21 04:36 Eos % (Auto) 3.4 % (0.0-4.3) 01/31/21 04:36 Baso % (Auto) 1.1 % (0.0-1.8) 01/31/21 04:36 Lymph # (Auto) 2.0 K/mm3 (1.2-5.4) 01/31/21 04:36 [place] # (Auto) 0.5 K/mm3 (0.0-0.8) 01/31/21 04:36 Eos # (Auto) 0.1 K/mm3 (0.0-0.4) 01/31/21 04:36 Baso # (Auto) 0.0 K/mm3 (0.0-0.1) 01/31/21 04:36 Seg Neutrophils % 38.1 % (40.0-70.0) L 01/31/21 04:36 Seg Neutrophils # 1.6 K/mm3 (1.8-7.7) L 01/31/21 04:36 Sodium 138 mmol/L (137-145) 01/31/21 04:36 Potassium 3.9 mmol/L (3.6-5.0) 01/31/21 04:36 Chloride 103.1 mmol/L (98-107) 01/31/21 04:36 Carbon Dioxide 26 mmol/L (22-30) 01/31/21 04:36 Anion Gap 13 mmol/L 01/31/21 04:36 BUN 17 mg/dL (9-20) 01/31/21 04:36 Creatinine 1.1 mg/dL (0.8-1.3) 01/31/21 04:36 Estimated GFR > 60 ml/min 01/31/21 04:36 BUN/Creatinine Ratio 15 % 01/31/21 04:36 Glucose 96 mg/dL (75-100) 01/31/21 04:36 Calcium 8.6 mg/dL (8.4-10.2) 01/31/21 04:36 Total Bilirubin 0.50 mg/dL (0.1-1.2) 01/31/21 04:36 AST 17 units/L (5-40) 01/31/21 04:36 ALT 18 units/L (7-56) 01/31/21 04:36 Alkaline Phosphatase 65 units/L (35-129) 01/31/21 04:36 Total Creatine Kinase 152 units/L (55-170) 01/31/21 04:36 CK-MB (CK-2) 1.7 ng/mL (0.0-4.0) 01/31/21 04:36 CK-MB (CK-2) Rel Index 1.1 (0-4) 01/31/21 04:36 Troponin T < 0.010 ng/mL (0.00-0.029) 01/31/21 04:36 Total Protein 6.7 g/dL (6.3-8.2) 01/31/21 04:36 Albumin 4.0 g/dL (3.9-5) 01/31/21 04:36 Albumin/Globulin Ratio 1.5 % 01/31/21 04:36 Law/IV: Voiding Method Toilet Active Medications - Current Medications Current Medications: Generic Name Dose Route Start Last Admin Trade Name Freq PRN Reason Stop Dose Admin Acetaminophen 650 mg 01/30/21 22:48 Acetaminophen 325 Mg Tab PO Q4H PRN Pain MILD(1-3)/Fever >100.5/CURRAN Cyclobenzaprine HCl 10 mg 01/30/21 22:49 Cyclobenzaprine 10 Mg Tab PO BID PRN Muscle Spasm Enoxaparin Sodium 40 mg 01/31/21 10:00 Enoxaparin 40 Mg/0.4 Ml Inj SUB-Q QDAY [facility] Famotidine 20 mg 01/31/21 10:00 Famotidine 20 Mg Tab PO BID [facility] Hydrochlorothiazide 12.5 mg 01/31/21 10:00 Hydrochlorothiazide 12.5 Mg Cap PO QDAY [facility] Hydromorphone HCl 0.5 mg 01/30/21 22:48 Hydromorphone 1 Mg/1 Ml Inj IV Q3H PRN Pain , Severe (7-10) Losartan Potassium 100 mg 01/31/21 10:00 Losartan 50 Mg Tab PO QDAY [facility] Metoclopramide HCl 10 mg 01/30/21 22:48 Metoclopramide 10 Mg/2 Ml Inj IV Q6H PRN Nausea And Vomiting Ondansetron HCl 4 mg 01/30/21 22:48 Ondansetron 4 Mg/2 Ml Inj IV Q8H PRN Nausea And Vomiting Oxycodone/Acetaminophen 1 tab 01/30/21 22:48 Oxycodone /Acetaminophen 5-325mg Tab PO Q6H PRN Pain, Moderate (4-6) Sodium Chloride 10 ml 01/31/21 10:00 Sodium Chloride 0.9% 10 Ml Flush Syringe IV BID [facility] Sodium Chloride 10 ml 01/30/21 22:48 Sodium Chloride 0.9% 10 Ml Flush Syringe IV PRN PRN LINE FLUSH
--- NOTE | 2021-01-31 12:27 | Electrocardiograph Report ---
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
[2021-01-31 12:44] VITALS: BP 112/65
--- NOTE | 2021-01-31 14:17 | Consultation ---
History of Present Illness Consult date: 01/31/21 Requesting physician: ANGELA WEST Consult reason: chest pain History of present illness: 60-year-old gentleman with a past medical history of hypertension and cervical radiculopathy presents to [facility] emergency department complaining of chest pain radiating bilaterally to his arms. A twelve-lead EKG reveals sinus rhythm with left atrial enlargement and no acute ST segment changes. The patient had negative cardiac enzymes x4. Chest x-ray was negative for any infiltrates or effusions. His blood pressure was stable in the emergency department. 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 Since admission he has not had any recurrence of chest pain. He is sitting up in the bed and requesting to possibly go home. Past History Past Medical History: hypertension Social history: denies: alcohol abuse, IV drug use Family history: hypertension Medications and Allergies Allergies Allergy/AdvReac Type Severity Reaction Status Date / Time No Known Allergies Allergy Verified 01/30/21 13:51 Home Medications Medication Instructions Recorded Confirmed Last Taken Type Cyclobenzaprine HCl 7.5 mg PO BID PRN #14 tab 04/15/16 06/04/20 05/27/20 Rx [Cyclobenzaprine 7.5 MG TAB] 7.5mg Olmesartan/Hctz 40/12.5MG(Nf) 1 tab PO DAILY 06/04/20 06/04/20 06/03/20 History [Benicar Hct 40-12.5 mg (Nf)] 1 methOCARBAMOL [Robaxin TAB] 500 mg PO DAILY PRN 06/04/20 06/04/20 Unknown History Active Meds: Active Medications Acetaminophen (Acetaminophen 325 Mg Tab) 650 mg PO Q4H PRN PRN Reason: Pain MILD(1-3)/Fever >100.5/CURRAN Cyclobenzaprine HCl (Cyclobenzaprine 10 Mg Tab) 10 mg PO BID PRN PRN Reason: Muscle Spasm Enoxaparin Sodium (Enoxaparin 40 Mg/0.4 Ml Inj) 40 mg SUB-Q QDAY [facility] Last Admin: 01/31/21 11:08 Dose: 40 mg Documented by: Famotidine (Famotidine 20 Mg Tab) 20 mg PO BID [facility] Last Admin: 01/31/21 11:08 Dose: 20 mg Documented by: Hydrochlorothiazide (Hydrochlorothiazide 12.5 Mg Cap) 12.5 mg PO QDAY [facility] Last Admin: 01/31/21 11:08 Dose: 12.5 mg Documented by: Hydromorphone HCl (Hydromorphone 1 Mg/1 Ml Inj) 0.5 mg IV Q3H PRN PRN Reason: Pain , Severe (7-10) Losartan Potassium (Losartan 50 Mg Tab) 100 mg PO QDAY [facility] Last Admin: 01/31/21 11:08 Dose: 100 mg Documented by: Metoclopramide HCl (Metoclopramide 10 Mg/2 Ml Inj) 10 mg IV Q6H PRN PRN Reason: Nausea And Vomiting Ondansetron HCl (Ondansetron 4 Mg/2 Ml Inj) 4 mg IV Q8H PRN PRN Reason: Nausea And Vomiting Oxycodone/Acetaminophen (Oxycodone /Acetaminophen 5-325mg Tab) 1 tab PO Q6H PRN PRN Reason: Pain, Moderate (4-6) Last Admin: 01/31/21 11:30 Dose: 1 tab Documented by: Sodium Chloride (Sodium Chloride 0.9% 10 Ml Flush Syringe) 10 ml IV BID [facility] Last Admin: 01/31/21 11:08 Dose: 10 ml Documented by: Sodium Chloride (Sodium Chloride 0.9% 10 Ml Flush Syringe) 10 ml IV PRN PRN PRN Reason: LINE FLUSH Review of Systems Constitutional: no fever, no chills Ears, nose, mouth and throat: deferred Cardiovascular: chest pain, no orthopnea, no palpitations, no edema, no syncope Respiratory: no cough, no hemoptysis Gastrointestinal: no abdominal pain, no nausea, no vomiting Genitourinary Male: no dysuria, no hematuria Rectal: no pain, no incontinence Musculoskeletal: no neck stiffness, no neck pain Integumentary: no rash Neurological: no head injury, no transient paralysis Psychiatric: no anxiety, no memory loss Physical Examination Vital Signs Temp Pulse Resp BP Pulse Ox 97.8 F 58 L 16 127/77 98 01/30/21 13:43 01/30/21 13:43 01/30/21 13:43 01/30/21 13:43 01/30/21 13:43 General appearance: no acute distress HEENT: Positive: PERRL Neck: Positive: neck supple, trachea midline Cardiac: Positive: Reg Rate and Rhythm Lungs: Positive: Normal Exam, clear to auscultation Neuro: Positive: Grossly Intact Abdomen: Positive: Soft, Active Bowel Sounds Male genitourinary: Positive: deferred Extremities: Present: warm. Absent: edema Results 01/31/21 04:36 01/31/21 04:36 Cardiac Enzymes 01/30/21 01/31/21 01/31/21 Range/Units 13:55 00:08 04:36 AST 18 17 (5-40) units/L CK-MB (CK-2) 1.9 (0.0-4.0) ng/mL 01/31/21 Range/Units 04:36 AST (5-40) units/L CK-MB (CK-2) 1.7 (0.0-4.0) ng/mL CBC 01/30/21 01/31/21 Range/Units 13:55 04:36 WBC 4.1 L 4.3 L (4.5-11.0) K/mm3 RBC 4.40 4.25 (3.65-5.03) M/mm3 Hgb 13.6 13.1 (11.8-15.2) gm/dl Hct 40.1 38.7 (35.5-45.6) % Plt Count 190 178 (140-440) K/mm3 Lymph # (Auto) 1.6 2.0 (1.2-5.4) K/mm3 [place] # (Auto) 0.4 0.5 (0.0-0.8) K/mm3 Eos # (Auto) 0.1 0.1 (0.0-0.4) K/mm3 Baso # (Auto) 0.0 0.0 (0.0-0.1) K/mm3 Comprehensive Metabolic Panel 01/30/21 01/31/21 Range/Units 13:55 04:36 Sodium 141 138 (137-145) mmol/L Potassium 3.8 3.9 (3.6-5.0) mmol/L Chloride 104.2 103.1 (98-107) mmol/L Carbon Dioxide 23 26 (22-30) mmol/L BUN 17 17 (9-20) mg/dL Creatinine 1.1 1.1 (0.8-1.3) mg/dL Glucose 105 H 96 (75-100) mg/dL Calcium 8.8 8.6 (8.4-10.2) mg/dL AST 18 17 (5-40) units/L ALT 18 18 (7-56) units/L Alkaline Phosphatase 66 65 (35-129) units/L Total Protein 7.5 6.7 (6.3-8.2) g/dL Albumin 4.3 4.0 (3.9-5) g/dL - Imaging and Cardiology EKG: report reviewed EKG interpretations - Telemetry EKG Rhythm: Sinus Rhythm Assessment and Plan 60-year-old gentleman with a past medical history of hypertension and r adiculopathy presents complaining of chest pain. Cardiac enzymes are negative x4. Twelve-lead EKG does not reveal any acute changes. The patient blood pressure stable. Chest x-ray is negative. Recommend the patient follow-up with cardiology as an outpatient/Dr. Amna Eaton [phone].
--- NOTE | 2021-01-31 23:10 | Discharge Summary ---
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 Patient was went to urgent care and was sent to the [facility]. 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 Patient had a stress test about 10 years ago. Patient has a history of hypertension and is compliant. Chest pain has been going on since last night and intermittent in nature. Chest pain is about 8 on a scale of 1- 10. No diaphoresis no shortness of breath. Hospital course Patient was admitted to the hospital and serial troponin was done and negative. Chest pain resolved. EKG was read stamp pad finisher and said no acute changes. Patient was evaluated by Dr. Amna Faith and states she will follow the office and does not need stress test at this time. Blood pressure was controlled chest pain resolved patient discharged home with outpatient cardiology follow-up. Disposition: 01 HOME / SELF CARE / HOMELESS Final Discharge Diagnosis (Prints w/discharge instructions): Chest pain. Hypertension Time spent for discharge: 31-minutes - Discharge Diagnoses (1) Acute chest pain Status: Acute (2) Hypertension Status: Chronic Qualifiers: Hypertension type: primary hypertension Qualified Code(s): I10 - Essential (primary) hypertension Core Measure Documentation - Palliative Care Palliative Care/ Comfort Measures: Not Applicable - Core Measures Any of the following diagnoses?: none Exam - Physical Exam Narrative exam: Not in cardiopulmonary distress. The patient appeared well nourished and normally developed. Vital signs as documented. Head exam is unremarkable. No scleral icterus . Neck is without jugular venous distension, thyromegaly, or carotid bruits. Lungs are clear to auscultation. Cardiac exam reveals regular rate and Rhythm. Abdominal exam reveals normal bowel sounds, nontender, no organomegaly. Extremities are nonedematous and both femoral and pedal pulses are normal. 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 No focal weakness. - Constitutional Vitals: Temp Pulse Resp BP Pulse Ox 98.3 F 57 L 20 112/65 98 01/31/21 12:01/31/21 12:01/31/21 12:01/31/21 12:01/31/21 12: Plan Activity: no restrictions Weight Bearing Status: Full Weight Bearing Diet: low salt Follow up with: AMNA FAITH MD [Staff Physician] - 7 Days YOLETTE YOUNG MD [Primary Care Provider] - 7 Days
--- NOTE | 2021-02-02 10:38 | Electrocardiograph Report ---
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
== END 2021-01-31 15:30 | disposition home or self-care (01) ==
LOC: ED 13:25 → 4A 14:54
PROVIDERS: ADMIT Internal Medicine; ATTEND Internal Medicine
DX: I24.9 Acute ischemic heart disease, unspecified (principal); I10 Essential (primary) hypertension; M19.90 Unspecified osteoarthritis, unspecified site; R07.89 Other chest pain; Z87.891 Personal history of nicotine dependence
CPT/HCPCS: 36415; 71046; 80053; 82550; 82553; 84484; 85025; 93005; 96372; 99285; G0378; J1650

== ENCOUNTER 2021-02-10 09:26 | Outpatient (CLI) | payer BC ==
[2021-02-10] MEDS ORDERED: REGADENOSON 0.4 MG/5 ML INJ IV ONE ×2 (10:54→10:57)
[2021-02-10 12:46] VITALS: BP 133/88
--- NOTE | 2021-02-11 11:05 | Treadmill Report ---
DATE OF SERVICE: 02/10/2021 NUCLEAR STRESS TEST REFERRING PHYSICIAN: Dr. Eaton in our office [phone]. PROTOCOL: The patient was assessed in postabsorptive state, given 10 mCi of technetium at rest. The patient had rest imaging. The patient underwent Lexiscan stress test per standard protocol. At peak stress, the patient given 26 mCi technetium. Shortly thereafter, the patient had stress imaging. Raw imaging reveals mild GI artifact, no significant motion artifact. SPECT imaging examined carefully in horizontal long axis, vertical long axis, short axis views. There was normal homogeneous uptake of radioisotope in all port segments. No evidence of significant fixed or reversible perfusion defect suggestive of prior infarction or ischemia. Gated wall motion reveals normal systolic thickening, calculated ejection fraction of 63%. No TID. CONCLUSIONS: 1. Normal myocardial perfusion scan without evidence of active ischemia or prior infarction. 2. Normal left ventricular systolic performance without evidence of transient ischemic dilatation or stress-induced segmental wall motion abnormalities. TID: [id number] RECEIPT: [id number]
== END 2021-02-10 09:27 | disposition home or self-care (01) ==
LOC: ECHO 09:26
PROVIDERS: ATTEND Internal Medicine Cardiovascular Disease
DX: I08.8 Other rheumatic multiple valve diseases (principal); I20.0 Unstable angina; R07.9 Chest pain, unspecified
CPT/HCPCS: 78452; 93017; 93306; A9502; J2785

== ENCOUNTER 2021-08-11 08:10 | Outpatient (CLI) | payer BC ==
--- NOTE | 2021-08-11 09:36 | Ultrasound Report ---
ULTRASOUND RENAL INDICATION / CLINICAL INFORMATION: RENAL CYST N28.1. COMPARISON: None available. FINDINGS: RIGHT KIDNEY: Length = 9.1 cm. - Echogenicity: Normal. - Parenchymal Thickness: Normal. - Hydronephrosis: None. - Cyst / Mass: Simple cyst measuring 1.7 cm in the upper pole - Stones: None seen. LEFT KIDNEY: Length = 12.1 cm. - Echogenicity: Normal. - Parenchymal Thickness: Normal. - Hydronephrosis: None. - Cyst / Mass: 7.3 cm simple cyst in the lower pole - Stones: None seen. URINARY BLADDER: No significant abnormality. FREE FLUID: None. ADDITIONAL FINDINGS: None. IMPRESSION: 1. Simple bilateral renal cysts. Signer Name: Matt Alarcon MD Signed: 08/11/2021 9:31 AM Workstation Name: [id number]
== END 2021-08-11 08:11 | disposition home or self-care (01) ==
LOC: US 08:10
PROVIDERS: ATTEND Family Medicine
DX: N28.1 Cyst of kidney, acquired (principal)
CPT/HCPCS: 76770